=== PATIENT | female | born 1960 | race Caucasian/White ===

== ENCOUNTER 2023-01-07 13:49 | Outpatient (AMB) | payer BC, SELFPAY ==
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
[2023-01-07 14:17] VITALS: BP 130/82; PULSE 58; RESP 18; O2SAT 99; BMI 26.7
== END 2023-01-07 14:44 | disposition home or self-care (01) ==
PROVIDERS: PCP Family Medicine; Visit Provider Anesthesiology
DX: M25.551 Pain in right hip (principal); G89.4 Chronic pain syndrome; M16.0 Bilateral primary osteoarthritis of hip; Q65.89 Other specified congenital deformities of hip; M17.10 Unilateral primary osteoarthritis, unspecified knee; M54.50 Low back pain, unspecified; M51.36 Other intervertebral disc degeneration, lumbar region
CPT/HCPCS: 99204

== ENCOUNTER → 2023-01-07 13:49 | Outpatient (BNVA) | payer BC, SELFPAY | PROVIDERS: PCP Family Medicine; Visit Provider Anesthesiology ==